=== PATIENT | female | born 1990 | race African-American/Black ===

== ENCOUNTER 2020-04-19 10:41 | Emergency (ER) | payer OTHER ==
[~2020-04-19] VITALS: Ht 167.6 cm; Wt 81.7 kg
[2020-04-19 11:04] LABS: BASOPHILS 0.3 % (0.0-2.0); HEMATOCRIT 40.3 % (37.0-47.0); LYMPHOCYTES 5.6 % (24.0-44.0); MCH 27.7 pg (26.0-34.0); MCHC 32.1 g/dL (28.0-37.0); MCV 86.1 fL (80.0-100.0); MONOCYTES 3.6 % (1.0-8.0); PLATELET COUNT 277 thou/uL (150-400); POLYS 90.5 % (36.0-66.0); RBC 4.69 mil/uL (4.20-5.00); RDW 14.6 % (10.5-14.5); WBC 15.5 thou/uL (4.0-11.0)
[2020-04-19 11:14] LABS: CALCIUM 9.8 mg/dL (8.5-10.1); POTASSIUM 4.2 mmol/L (3.5-5.1)
[2020-04-19 11:20] LABS: ALBUMIN 3.9 g/dL (3.4-5.0); TOTAL BILIRUBIN 0.2 mg/dL (0.2-1.0); TOTAL PROTEIN 8.1 g/dL (6.4-8.2)
[2020-04-19 11:33] LABS: URINE BILIRUBIN NEGATIVE (Negative); URINE BLOOD NEGATIVE (Negative); URINE CLARITY CLEAR; URINE COLOR YELLOW; URINE GLUCOSE-RANDOM* NEGATIVE (Negative); URINE KETONES TRACE (Negative); URINE LEUKOCYTES-REFLEX NEGATIVE (Negative); URINE NITRITE-REFLEX NEGATIVE (Negative); URINE PROTEIN (DIPSTICK) TRACE (Negative); URINE SPECIFIC GRAVITY >= 1.030 (1.005-1.035); URINE UROBILINOGEN 0.2 E.U./dl (0.2-1.0)
[2020-04-19 11:50] LABS: AMP/METHAMP Negative (Negative); BARBITURATES Negative (Negative); BENZODIAZEPINES Negative (Negative); COCAINE Negative (Negative); METHADONE Negative (Negative); OPIATES Negative (Negative); PCP Negative (Negative)
[2020-04-19] MEDS ORDERED: KEPPRA XR500 MG PO (12:50)
[2020-04-19 14:23] VITALS: BP 124/82
--- NOTE | 2020-04-19 15:21 | EKG ---
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
== END 2020-04-19 14:29 | disposition home or self-care (01) ==
LOC: ER 10:41
PROVIDERS: Emergency Medicine
DX: R56.9 Unspecified convulsions (principal); R41.82 Altered mental status, unspecified

== ENCOUNTER 2020-11-08 07:10 | Emergency (ER) | payer OTHER ==
[~2020-11-08] VITALS: Ht 165.1 cm; Wt 68.0 kg
[~2020-11-08 07:10] MED LIST: KEPPRA XR500 MG PO
[2020-11-08 07:15] VITALS: BP 108/77
[2020-11-08] MEDS ORDERED: NORCO 10-325 T1 EACH PO ×2 (11:17→11:19)
[2020-11-08 12:05] VITALS: BP 124/76
[2020-11-08 13:40] VITALS: BP 124/76
--- NOTE | 2020-11-10 10:39 | O ---
[facility] [place] [address] OPERATIVE REPORT Name: HODA CONTRERAS Room #: DEP Teresita#: [id number] Admission: 11/08/20 Attend Phys: Discharge: 11/08/20 Date of : [birth year] Report #: [id number] THIS REPORT FOR: cc: FAM - Family physician unknown FAM - Family physician unknown Alex Gallegos MD ~ DATE OF SERVICE: 11/08/2020 PREOPERATIVE DIAGNOSIS: Left closed shoulder dislocation. POSTOPERATIVE DIAGNOSIS: Left closed shoulder dislocation. PROCEDURE: Left shoulder closed reduction under anesthesia. SURGEON: Alex Gallegos MD. ANESTHESIA: General. No blood loss. DESCRIPTION OF PROCEDURE: The patient was brought to the operating room where she was placed under general anesthesia. Once under adequate general anesthesia, a reduction maneuver was performed on the left shoulder. With a traction countertraction maneuver, the shoulder reduced. The reduction was verified utilizing x-ray images on AP and an axillary view. The left upper extremity was then placed into a shoulder immobilizer. There were no complications from the procedure. The patient tolerated the procedure well and went to the recovery room without incident. <ELECTRONICALLY SIGNED> By: Alex Gallegos MD 11/10/20 1039 1222 1311 Alex Gallegos MD /nt
== END 2020-11-08 12:10 | disposition still patient (30) ==
LOC: ER 07:10 → TBA 12:10 → ER 13:02 → TBA 15:00
DX: S42.252A Displaced fracture of greater tuberosity of left humerus, initial encounter for closed fracture (principal); Z20.822 Contact with and (suspected) exposure to COVID-19; X58.XXXA Exposure to other specified factors, initial encounter; Y93.89 Activity, other specified; Y92.89 Other specified places as the place of occurrence of the external cause; Y99.8 Other external cause status
CPT/HCPCS: 50010; 50101; 62110; 62900; 70005

== ENCOUNTER 2021-02-22 14:46 | Emergency (ER) | payer OTHER ==
[~2021-02-22] VITALS: Ht 167.6 cm; Wt 63.5 kg
[~2021-02-22 14:46] MED LIST changes: +NORCO 10-325 T1 EACH PO
[2021-02-22 15:02] VITALS: BP 108/56
[2021-02-22] MEDS ORDERED: VENLAFAXINE H37.5 M2 PO (15:07)
[2021-02-22] MEDS ORDERED: HYDROXYZINE HCL25 M2 PO (15:07)
[2021-02-22] MEDS ORDERED: NAPROSYN500 MG PO (15:20)
[2021-02-22] MEDS ORDERED: FLEXERIL PO (15:20)
== END 2021-02-22 16:48 | disposition home or self-care (01) ==
LOC: ER 14:46
DX: M25.512 Pain in left shoulder (principal); M54.2 Cervicalgia; M79.605 Pain in left leg; Z79.899 Other long term (current) drug therapy; Z79.891 Long term (current) use of opiate analgesic; Z79.1 Long term (current) use of non-steroidal anti-inflammatories (NSAID); V43.62XA Car passenger injured in collision with other type car in traffic accident, initial encounter; Y93.89 Activity, other specified; Y92.89 Other specified places as the place of occurrence of the external cause; Y99.8 Other external cause status

== ENCOUNTER 2021-02-28 07:16 | Emergency (ER) | payer OTHER ==
[~2021-02-28] VITALS: Ht 167.6 cm; Wt 63.5 kg
--- NOTE | ~2021-02-28 | EMS ---
[address] [address] EMS Patient Care Report Name: HODA CONTRERAS Room #: PRE Teresita#: [id number] Admission: Attend Phys: Discharge: Date of : [birth year] Report #: [id number] THIS REPORT FOR: //name// Report Transmitted: 02/28/2021 06:41 EMS Care Summary [place], [place]/[facility] Incident [id number] @ 02/28/2021 06:41 Incident Location [address] [place] [id number] Patient BRENDAN CONTRERAS Female, 30 Years 1990 Patient Address [address] [place] [id number] Patient History Seizures,Depression,Post Traumatic Stress Disorder (PTSD), Patient Allergies No known allergies, Patient Medications Keppra, Chief Complaint seizure Disposition Transported No Lights/[place] Reason Convulsions/Seizure Transported To [facility] Narrative pt found lying in bed, sleeping. she has a sz hx and awoke her father when she had a sz in bed. he states the sz lasted approx 2-3 minutes. she is reported [address] [address] EMS Patient Care Report Name: HODA CONTRERAS Room #: PRE MOfe.#: [id number] Admission: Attend Phys: Discharge: Date of : 88 Report #: [id number] to be current on her meds. pt awakes easily to verbal, she does not know she had a sz. she is oriented, incontinent of urine, c/o headache, neck and back pain from the sz. pt upset about urinating in bed, wants to take bath PTD, but was told time did not allow that. pt seats self in unit, transport w/o change. pt talking on phone during transport. Initial Vitals @07:04P: 100,R: 18,BP: 123/80,Pain: 6/10,GCS: 15,Glucose: 97,SpO2: 98,Revised Trauma: 12, Assessments @06:50MENTAL:Person Oriented,Place Oriented,Event Oriented,Time Oriented,SKIN:No Abnormalities,HEENT:Head/Face: Other,LUNG SOUNDS:ABDOMEN:PELVIS//GI:Incontinence,EXTREMITIES:PULSE:Radial: 2+ Normal,NEURO:Seizures, Impression Seizures Procedures @06:50 ALS Assessment Response: Unchanged Timeline 06:38,Call Received 06:38,Dispatch Notified 06:41,Dispatched 06:42,En Route 06:47,On Scene 06:50,At Patient 06:50,ALS Assessment,Response: Unchanged 07:04,BP: 123/80 M,PULSE: 100,RR: 18 R,SPO2: 98 Ox,ETCO2: ,B,PAIN: 6,GCS: 15, 07:05,Depart Scene 07:13,At Destination 07:22,Call Closed Disclaimer [email or web address] Copyright 2020 [employer] This EMS Care Summary contains data elements from the applicable legal record (which may be displayed differently). It is designed to provide pertinent information for the following purposes: continuity of care, clinical quality, and state data reporting. The complete legal record is available to ED staff and administrators of the receiving hospital in ES's Patient Tracker. All data is provided "as is."
[~2021-02-28 07:16] MED LIST changes: +FLEXERIL PO; +HYDROXYZINE HCL25 M2 PO; +NAPROSYN500 MG PO; +VENLAFAXINE H37.5 M2 PO
[2021-02-28 08:00] LABS: ABSOLUTE NEUTROPHILS 4.6 thou/uL (1.4-8.2); BASOPHILS 0.4 % (0.0-2.0); EOSINOPHILS 1.2 % (0.0-3.0); HEMATOCRIT 39.8 % (37.0-47.0); HEMOGLOBIN 12.8 gm/dL (12.0-15.0); LYMPHOCYTES 22.3 % (24.0-44.0); MCH 28.5 pg (26.0-34.0); MCV 88.9 fL (80.0-100.0); MONOCYTES 6.6 % (1.0-8.0); PLATELET COUNT 215 thou/uL (150-400); POLYS 69.5 % (36.0-66.0); RBC 4.48 mil/uL (4.20-5.00); RDW 14.7 % (10.5-14.5); WBC 6.6 thou/uL (4.0-11.0)
[2021-02-28 08:01] LABS: CALCIUM 8.7 mg/dL (8.5-10.1); POTASSIUM 3.8 mmol/L (3.5-5.1)
[2021-02-28] MEDS ORDERED: XANAX 0.5 MG0.5 MG PO (08:37)
[2021-02-28 09:22] VITALS: BP 123/75
== END 2021-02-28 09:25 | disposition home or self-care (01) ==
LOC: ER 07:16
PROVIDERS: Emergency Medicine
DX: R56.9 Unspecified convulsions (principal); F32.9 Major depressive disorder, single episode, unspecified; Z79.1 Long term (current) use of non-steroidal anti-inflammatories (NSAID); Z79.899 Other long term (current) drug therapy